=== PATIENT | female | born 1965 | race Caucasian/White ===

== ENCOUNTER 2017-01-02 02:07 | Emergency (ER) | payer OTHER ==
[~2017-01-02] VITALS: Ht 167.6 cm; Wt 97.3 kg
[~2017-01-02 02:07] MED LIST: ALPR-475 PO; ALPR1TAB2 PO; ESCI20TA10 PO; ESTR0.3T PO; ESTR1.25 PO; OXYC15TA75 PO; WARF1POW PO; WARF7.5T PO; WARF7.5T6 PO
[2017-01-02] MEDS ORDERED: ONDANSETRON 2MG/ML, 2ML IVPush ONE (03:00)
[2017-01-02] MEDS ORDERED: SODIUM CHLORIDE 0.9% 1,000ML IVBOLUS ONE (03:00)
[2017-01-02] MEDS ORDERED: MORPHINE SULFATE 4 MG/ML, 1ML ONE ×5 (03:15→14:16)
[2017-01-02] MEDS ORDERED: ONDANSETRON 2MG/ML, 2ML ONE (03:16)
[2017-01-02] MEDS: MORPHINE SULFATE 4 MG/ML, 1ML IVPush PRN ×4 (03:19→10:38)
[2017-01-02] MEDS ORDERED: PROM25SU34 RC (03:41)
[2017-01-02 03:42] LABS: ASPARTATE AMINO TRANSFERASE 24 U/L (15-37); BLOOD UREA NITROGEN 11 mg/dL (7-18)
[2017-01-02 03:51] LABS: IS PT STATUS REG ER OR PRE ER? YES
[2017-01-02] MEDS ORDERED: SODIUM CHLORIDE 0.9% 1,000 ML IV ONE (04:29)
[2017-01-02] MEDS ORDERED: ONDANSETRON 2MG/ML, 2ML IVPush PRN (04:30)
[2017-01-02] MEDS ORDERED: NS + 20MEQ KCL 1,000 ML IV SCH (04:47)
[2017-01-02] MEDS ORDERED: NS + 20MEQ KCL 1,000 ML IV ONE (04:54)
[2017-01-02] MEDS ORDERED: OXYcodone IR 5MG TABLET PO PRN (05:00)
[2017-01-02] MEDS ORDERED: ONDANSETRON 2MG/ML, 2ML IVP PRN (05:00)
[2017-01-02] MEDS ORDERED: LORazepam 2 MG/ML, 1ML IVPush PRN (05:00)
[2017-01-02] MEDS ORDERED: MORPHINE SULFATE 4 MG/ML, 1ML IVPush PRN ×2 (05:00→15:30)
[2017-01-02 06:19] LABS: IS PT STATUS REG ER OR PRE ER? YES
[2017-01-02] MEDS ORDERED: REGADENOSON 0.4 MG/5 ML SYRINGE ONE (08:15)
[2017-01-02] MEDS ORDERED: TEMPLATE NON-FORMULARY MED. (Escitalopram Oxalate** (Lexapro**) 20 MG) PO SCH (09:00)
[2017-01-02] MEDS ORDERED: WARFARIN 5 MG TABLET PO-COUM SCH (09:00)
[2017-01-02] MEDS ORDERED: FAMOTIDINE 20 MG/2 ML IV SCH (09:00)
[2017-01-02] MEDS ORDERED: ESTROGEN CONJUGATED 0.3 MG TABLET PO SCH (09:00)
[2017-01-02] MEDS ORDERED: FAMOTIDINE 20 MG/2 ML ONE (10:36)
[2017-01-02 10:55] LABS: IS PT STATUS REG ER OR PRE ER? YES
[2017-01-02] MEDS ORDERED: vitamin b-12 IM (11:19)
[2017-01-02 14:00] VITALS: BP 119/74
[2017-01-03] MEDS ORDERED: CITALOPRAM 20 MG TABLET PO SCH (09:00)
== END 2017-01-02 14:53 | disposition other institution (70) ==
LOC: ED 03:54 → EDIP 04:29 → UNDOADMIN 04:29 → ED 14:53
DX: R10.13 Epigastric pain (principal); I10 Essential (primary) hypertension; R07.89 Other chest pain
CPT/HCPCS: 36415; 74022; 78452; 80053; 83036; 83690; 84443; 84484; 85025; 85610; 93005; 93017; 96361; 96374; 96375; 96376; 99285; A9502; C9898; J2405; J2785; J3480; J7030; S0028

== ENCOUNTER 2017-02-27 00:50 | Emergency (ER) | payer OTHER ==
[~2017-02-27] VITALS: Ht 167.6 cm; Wt 90.0 kg
[~2017-02-27 00:50] MED LIST changes: +PROM25SU34 RC; +vitamin b-12 IM
[2017-02-27 02:00] LABS: HCG UR OBC PASS
[2017-02-27] MEDS ORDERED: ONDANSETRON 2MG/ML, 2ML IVPush ONE (02:00)
[2017-02-27 02:03] LABS: ASPARTATE AMINO TRANSFERASE 15 U/L (15-37); BLOOD UREA NITROGEN 11 mg/dL (7-18)
[2017-02-27] MEDS ORDERED: ONDANSETRON 2MG/ML, 2ML ONE ×2 (02:29→03:48)
[2017-02-27] MEDS ORDERED: MORPHINE SULFATE 4 MG/ML, 1ML ONE ×2 (02:29→03:48)
[2017-02-27] MEDS: MORPHINE SULFATE 4 MG/ML, 1ML IVPush PRN ×2 (02:39→03:51)
[2017-02-27] MEDS ORDERED: SODIUM CHLORIDE 0.9% 1,000ML IVBOLUS ONE (03:00)
[2017-02-27 03:30] VITALS: BP 145/80
== END 2017-02-27 04:38 | disposition home or self-care (01) ==
LOC: ED 02:21
DX: R10.9 Unspecified abdominal pain (principal); G89.29 Other chronic pain; R11.0 Nausea; I10 Essential (primary) hypertension; Z90.710 Acquired absence of both cervix and uterus; F12.10 Cannabis abuse, uncomplicated; Z87.891 Personal history of nicotine dependence; Z91.040 Latex allergy status; Z91.041 Radiographic dye allergy status
CPT/HCPCS: 36415; 74020; 80053; 81003; 81025; 83690; 85025; 85610; 93005; 96374; 96375; 99285; J2405

== ENCOUNTER 2017-04-02 23:05 | Emergency (ER) | payer OTHER ==
[~2017-04-02] VITALS: Ht 167.6 cm; Wt 92.7 kg
[2017-04-02 23:07] VITALS: BP 116/89
== END 2017-04-02 23:48 | disposition home or self-care (01) ==
LOC: ED 23:42
DX: R07.89 Other chest pain (principal); I10 Essential (primary) hypertension; Z86.711 Personal history of pulmonary embolism; Z90.710 Acquired absence of both cervix and uterus; Z79.01 Long term (current) use of anticoagulants; Z91.040 Latex allergy status; Z88.8 Allergy status to other drugs, medicaments and biological substances
CPT/HCPCS: 93005; 99283

== ENCOUNTER 2017-05-26 18:35 | Emergency (ER) | payer OTHER ==
[~2017-05-26] VITALS: Ht 167.6 cm; Wt 90.5 kg
[2017-05-26] MEDS ORDERED: ONDANSETRON 2MG/ML, 2ML IVPush ONE (19:00)
[2017-05-26] MEDS ORDERED: SODIUM CHLORIDE FLUSH 10ML SYR IVF ONE (19:00)
[2017-05-26] MEDS ORDERED: SODIUM CHLORIDE 0.9% 1,000ML IVBOLUS ONE (19:00)
[2017-05-26] MEDS ORDERED: ONDANSETRON 2MG/ML, 2ML ONE (19:18)
[2017-05-26] MEDS ORDERED: HYDROmorphone 1 MG/ML, 1ML IM ONE (19:30)
[2017-05-26] MEDS ORDERED: HYDROmorphone 1 MG/ML, 1ML ONE (19:32)
[2017-05-26 19:44] LABS: HEMATOCRIT 39.4 % (34.6-47.8); HEMOGLOBIN 13.1 g/dL (11.7-16.4); WHITE BLOOD COUNT 4.9 x10^3/uL (3.4-10)
[2017-05-26 19:56] LABS: ASPARTATE AMINO TRANSFERASE 11 U/L (15-37); BLOOD UREA NITROGEN 13 mg/dL (7-18)
[2017-05-26] MEDS ORDERED: HYDROmorphone 1 MG/ML, 1ML IV ONE (20:00)
[2017-05-26 21:27] VITALS: BP 152/77
== END 2017-05-26 21:29 | disposition home or self-care (01) ==
LOC: ED 21:25
DX: R10.11 Right upper quadrant pain (principal); I10 Essential (primary) hypertension; Z90.710 Acquired absence of both cervix and uterus
CPT/HCPCS: 36415; 76705; 80053; 83690; 85025; 85610; 96361; 96374; 96375; 99285; J1170; J2405; J7030

== ENCOUNTER 2017-10-01 22:31 | Inpatient (IN) | payer OTHER ==
[~2017-10-01] VITALS: Ht 167.6 cm; Wt 92.8 kg
[2017-10-01 23:42] LABS: MICROSCOPIC NOT IND
[2017-10-01 23:43] LABS: CULTURE INDICATED? NO
[2017-10-01 23:44] LABS: BASOPHILS # (AUTO) 0.03 x10^3/uL (0-0.1); BASOPHILS % (AUTO) 0 % (0-1); EOSINOPHILS # (AUTO) 0.06 x10^3/uL (0-0.4); EOSINOPHILS % (AUTO) 1 % (1-7); LYMPHOCYTES # (AUTO) 1.04 x10^3/uL (1-3.4); LYMPHOCYTES % (AUTO) 16 % (22-44); MD NO; MEAN CORPUSCULAR HEMOGLOBIN 28.5 pg (27.0-34.8); MEAN CORPUSCULAR HGB CONC 32.6 g/dL (32.4-35.8); MEAN CORPUSCULAR VOLUME 87.3 fL (80-100); MEAN PLATELET VOLUME 8.9 fL (7.4-10.4); MONOCYTES # (AUTO) 0.53 x10^3/uL (0.2-0.8); MONOCYTES % (AUTO) 8 % (2-9); NEUTROPHILS # (AUTO) 5.05 x10^3/uL (1.8-6.8); NEUTROPHILS % (AUTO) 75 % (42-75); PLATELET COUNT 272 x10^3/uL (130-400); RED BLOOD COUNT 4.33 x10^6/uL (3.82-5.3); RED CELL DISTRIBUTION WIDTH 18.4 % (9.6-15.2)
[2017-10-01 23:59] LABS: ALANINE AMINOTRANSFERASE 43 U/L (12-78); ALBUMIN 3.2 g/dL (3.4-5.0); ANION GAP 11 mmol/L (5-15); CALCIUM 8.7 mg/dL (8.5-10.1); CHLORIDE 111 mmol/L (98-107); CREATININE 0.93 mg/dL (0.55-1.02)
[2017-10-02 00:04] LABS: ALKALINE PHOSPHATASE 231 U/L (45-117); BILIRUBIN,TOTAL 0.2 mg/dL (0.2-1.0); TOTAL PROTEIN 7.3 g/dL (6.4-8.2)
[2017-10-02] MEDS ORDERED: HYDROmorphone 2 MG/ML, 1ML IM ONE (00:30)
[2017-10-02] MEDS ORDERED: HYDROmorphone 2 MG/ML, 1ML ONE (00:34)
[2017-10-02] MEDS ORDERED: OMNIPAQUE 350 MG/ML, 100ML BOTTLE ONE (01:48)
[2017-10-02] MEDS ORDERED: SODIUM CHLORIDE 0.9% 1,000 ML IV ONE (02:46)
[2017-10-02 02:48] LABS: INTERNATIONAL NORMALIZED RATIO 1.28 (0.93-1.1); PROTHROMBIN TIME 13.2 Seconds (9.6-11.5)
[2017-10-02] MEDS ORDERED: METRONIDAZOLE PMX 500MG/100ML 100 ML ONE (03:00)
[2017-10-02] MEDS ORDERED: MORPHINE SULFATE 4 MG/ML, 1ML IVPush PRN (03:00)
[2017-10-02] MEDS ORDERED: MORPHINE SULFATE 4 MG/ML, 1ML ONE (03:00)
[2017-10-02] MEDS ORDERED: CIPROFLOXACIN/PMX 400MG/200ML 200 ML IV ONE (03:00)
[2017-10-02] MEDS ORDERED: ONDANSETRON 2MG/ML, 2ML IVPush PRN ×2 (03:00→04:30)
[2017-10-02] MEDS ORDERED: METRONIDAZOLE PMX 500MG/100ML 100 ML IV ONE (03:00)
[2017-10-02] MEDS ORDERED: CIPROFLOXACIN/PMX 400MG/200ML 200 ML ONE (03:00)
[2017-10-02] MEDS ORDERED: PROMETHAZINE 25 MG SUPP PR PRN (04:00)
[2017-10-02] MEDS ORDERED: ENALAPRILAT 1.25 MG/ML, 2ML IVPush PRN (04:30)
[2017-10-02] MEDS ORDERED: TEMAZEPAM 15 MG CAPSULE PO PRN (04:30)
[2017-10-02] MEDS ORDERED: ONDANSETRON ODT 4 MG PO PRN (04:30)
[2017-10-02] MEDS ORDERED: HYDROcodone/APAP 5/325 TABLET PO PRN (04:30)
[2017-10-02] MEDS ORDERED: DOCUSATE 100 MG CAPSULE PO PRN (04:30)
[2017-10-02] MEDS ORDERED: LABETALOL 5MG/ML, 20ML IVPush PRN (04:30)
[2017-10-02] MEDS ORDERED: POLYETHYLENE GLYCOL 17 GM PACKET PO PRN (04:30)
[2017-10-02] MEDS ORDERED: OXYcodone IR 5MG TABLET ONE (04:48)
[2017-10-02] MEDS: OXYcodone IR 5MG TABLET PO PRN ×3 (04:52→21:39)
[2017-10-02 06:04] VITALS: BP 128/83
[2017-10-02 06:06] VITALS: BP 128/83
[2017-10-02 07:00] VITALS: BP 129/75
[2017-10-02] MEDS: ENOXAPARIN 100 MG/ML SQ SCH ×2 (07:56→17:54)
[2017-10-02] MEDS: CITALOPRAM 20 MG TABLET PO SCH ×2 (07:56→08:04)
[2017-10-02] MEDS: morphine SULFATE 10 MG/ML, 1ML IVPush PRN ×4 (08:11→18:02)
[2017-10-02] MEDS ORDERED: hydrALAzine 20 MG/ML, 1ML IV PRN (08:30)
[2017-10-02] MEDS ORDERED: WARFARIN SODIUM 5 MG PO SCH (09:00)
[2017-10-02] MEDS: CEFTRIAXONE 2 GM in DEXTROSE 5% 50 ML IV SCH (10:27)
[2017-10-02] MEDS: METRONIDAZOLE PMX 500MG/100ML 100 ML IV SCH ×2 (11:51→17:53)
[2017-10-02 13:15] VITALS: BP 113/73
[2017-10-02] MEDS ORDERED: CIPROFLOXACIN/PMX 400MG/200ML 200 ML IVPB SCH (15:00)
[2017-10-02] MEDS ORDERED: WARFARIN 7.5 MG TABLET PO-COUM SCH (18:00)
[2017-10-02 20:15] VITALS: BP 109/67
[2017-10-03] MEDS: METRONIDAZOLE PMX 500MG/100ML 100 ML IV SCH ×3 (03:01→18:18)
[2017-10-03 03:02] VITALS: BP 148/85
[2017-10-03] MEDS ORDERED: LORazepam 1MG TABLET PO ONE (03:30)
[2017-10-03 05:52] LABS: INTERNATIONAL NORMALIZED RATIO 1.64 (0.93-1.1); PROTHROMBIN TIME 16.9 Seconds (9.6-11.5)
[2017-10-03 05:57] LABS: CHLORIDE 110 mmol/L (98-107)
[2017-10-03 06:10] LABS: BASOPHILS # (AUTO) 0.02 x10^3/uL (0-0.1); BASOPHILS % (AUTO) 0 % (0-1); EOSINOPHILS # (AUTO) 0.03 x10^3/uL (0-0.4); EOSINOPHILS % (AUTO) 1 % (1-7); LYMPHOCYTES # (AUTO) 0.91 x10^3/uL (1-3.4); LYMPHOCYTES % (AUTO) 20 % (22-44); MD NO; MEAN CORPUSCULAR HEMOGLOBIN 28.8 pg (27.0-34.8); MEAN CORPUSCULAR VOLUME 87.4 fL (80-100); MEAN PLATELET VOLUME 8.9 fL (7.4-10.4); MONOCYTES # (AUTO) 0.52 x10^3/uL (0.2-0.8); MONOCYTES % (AUTO) 11 % (2-9); NEUTROPHILS # (AUTO) 3.13 x10^3/uL (1.8-6.8); NEUTROPHILS % (AUTO) 68 % (42-75); PLATELET COUNT 221 x10^3/uL (130-400); RED BLOOD COUNT 3.85 x10^6/uL (3.82-5.3); RED CELL DISTRIBUTION WIDTH 17.9 % (9.6-15.2)
[2017-10-03 06:12] LABS: ALANINE AMINOTRANSFERASE 32 U/L (12-78); ALBUMIN 2.9 g/dL (3.4-5.0); ALKALINE PHOSPHATASE 163 U/L (45-117); ANION GAP 7 mmol/L (5-15); BILIRUBIN,TOTAL 0.3 mg/dL (0.2-1.0); CALCIUM 8.3 mg/dL (8.5-10.1); TOTAL PROTEIN 6.6 g/dL (6.4-8.2)
[2017-10-03] MEDS: ENOXAPARIN 100 MG/ML SQ SCH ×2 (06:49→18:18)
[2017-10-03 08:40] VITALS: BP 140/75
[2017-10-03] MEDS: CEFTRIAXONE 2 GM in DEXTROSE 5% 50 ML IV SCH (09:36)
[2017-10-03] MEDS: CITALOPRAM 20 MG TABLET PO SCH (09:36)
[2017-10-03] MEDS: morphine SULFATE 10 MG/ML, 1ML IVPush PRN ×3 (11:17→21:05)
[2017-10-03 13:00] VITALS: BP 134/87
[2017-10-03] MEDS ORDERED: WARFARIN 3 MG TABLET PO-COUM SCH (18:00)
[2017-10-03 20:53] VITALS: BP 126/76
[2017-10-04 00:17] VITALS: BP 136/83
[2017-10-04] MEDS: morphine SULFATE 10 MG/ML, 1ML IVPush PRN ×4 (01:00→19:16)
[2017-10-04] MEDS: METRONIDAZOLE PMX 500MG/100ML 100 ML IV SCH ×3 (03:18→20:06)
[2017-10-04 05:31] LABS: BASOPHILS # (AUTO) 0.03 x10^3/uL (0-0.1); BASOPHILS % (AUTO) 1 % (0-1); EOSINOPHILS # (AUTO) 0.03 x10^3/uL (0-0.4); EOSINOPHILS % (AUTO) 1 % (1-7); LYMPHOCYTES # (AUTO) 1.19 x10^3/uL (1-3.4); LYMPHOCYTES % (AUTO) 22 % (22-44); MD NO; MEAN CORPUSCULAR HEMOGLOBIN 28.8 pg (27.0-34.8); MEAN CORPUSCULAR VOLUME 87.3 fL (80-100); MONOCYTES # (AUTO) 0.65 x10^3/uL (0.2-0.8); MONOCYTES % (AUTO) 12 % (2-9); NEUTROPHILS # (AUTO) 3.49 x10^3/uL (1.8-6.8); NEUTROPHILS % (AUTO) 65 % (42-75); PLATELET COUNT 223 x10^3/uL (130-400); RED BLOOD COUNT 3.83 x10^6/uL (3.82-5.3); RED CELL DISTRIBUTION WIDTH 18.1 % (9.6-15.2)
[2017-10-04 05:38] LABS: INTERNATIONAL NORMALIZED RATIO 3.24 (0.93-1.1); PROTHROMBIN TIME 32.9 Seconds (9.6-11.5)
[2017-10-04 05:40] LABS: CHLORIDE 110 mmol/L (98-107)
[2017-10-04] MEDS: ENOXAPARIN 100 MG/ML SQ SCH (05:51)
[2017-10-04 05:52] LABS: ALANINE AMINOTRANSFERASE 30 U/L (12-78); ALBUMIN 2.8 g/dL (3.4-5.0); ALKALINE PHOSPHATASE 159 U/L (45-117); ANION GAP 9 mmol/L (5-15); BILIRUBIN,TOTAL 0.2 mg/dL (0.2-1.0); CALCIUM 8.5 mg/dL (8.5-10.1); TOTAL PROTEIN 6.7 g/dL (6.4-8.2)
[2017-10-04 07:45] VITALS: BP 137/71
[2017-10-04] MEDS: CEFTRIAXONE 2 GM in DEXTROSE 5% 50 ML IV SCH (08:34)
[2017-10-04] MEDS: CITALOPRAM 20 MG TABLET PO SCH (08:38)
[2017-10-04] MEDS: ESTROGEN CONJUGATED 0.3 MG TABLET PO SCH (08:39)
[2017-10-04 09:26] LABS: INTERNATIONAL NORMALIZED RATIO 3.38 (0.93-1.1); PROTHROMBIN TIME 34.3 Seconds (9.6-11.5)
[2017-10-04 13:51] VITALS: BP 133/84
[2017-10-04] MEDS ORDERED: HOLD COUMADIN MC ONE (18:00)
[2017-10-04 20:11] VITALS: BP 130/85
[2017-10-04] MEDS: OXYcodone IR 5MG TABLET PO PRN (20:12)
[2017-10-05] MEDS: METRONIDAZOLE PMX 500MG/100ML 100 ML IV SCH ×2 (03:40→12:00)
[2017-10-05 03:43] VITALS: BP 131/81
[2017-10-05] MEDS: morphine SULFATE 10 MG/ML, 1ML IVPush PRN (05:22)
[2017-10-05 05:38] LABS: INTERNATIONAL NORMALIZED RATIO 3.43 (0.93-1.1); PROTHROMBIN TIME 34.8 Seconds (9.6-11.5)
[2017-10-05 07:35] VITALS: BP 143/80
[2017-10-05] MEDS: CEFTRIAXONE 2 GM in DEXTROSE 5% 50 ML IV SCH (07:56)
[2017-10-05] MEDS ORDERED: HOLD COUMADIN MC PRN (08:00)
[2017-10-05] MEDS: CITALOPRAM 20 MG TABLET PO SCH (08:01)
[2017-10-05] MEDS: ESTROGEN CONJUGATED 0.3 MG TABLET PO SCH (08:02)
[2017-10-05] MEDS: OXYcodone IR 5MG TABLET PO PRN (08:20)
[2017-10-05 09:53] LABS: INTERNATIONAL NORMALIZED RATIO 3.47 (0.93-1.1); PROTHROMBIN TIME 35.2 Seconds (9.6-11.5)
[2017-10-05] MEDS ORDERED: CEFD300C37 PO (11:12)
[2017-10-05] MEDS ORDERED: AZIT500T5 PO (11:12)
[2017-10-05] MEDS ORDERED: WARF2TAB PO (11:12)
[2017-10-05] MEDS ORDERED: METR500T PO (13:31)
== END 2017-10-05 13:40 | disposition home or self-care (01) | DRG 391 ==
LOC: ED 23:49 → EDIP 10-02 02:46 → 4NOR 10-02 05:40 → DCLOUNGE 10-05 13:17
PROVIDERS: ADMIT Internal Medicine; ATTEND Internal Medicine
DX: K57.92 Diverticulitis of intestine, part unspecified, without perforation or abscess without bleeding (principal); K55.059 Acute (reversible) ischemia of intestine, part and extent unspecified; D68.61 Antiphospholipid syndrome; F11.20 Opioid dependence, uncomplicated; I10 Essential (primary) hypertension; R51 Headache; K52.9 Noninfective gastroenteritis and colitis, unspecified; F32.9 Major depressive disorder, single episode, unspecified; D51.0 Vitamin B12 deficiency anemia due to intrinsic factor deficiency; Z88.9 Allergy status to unspecified drugs, medicaments and biological substances; Z90.710 Acquired absence of both cervix and uterus; Z86.711 Personal history of pulmonary embolism; Z88.8 Allergy status to other drugs, medicaments and biological substances; Z87.891 Personal history of nicotine dependence; Z79.01 Long term (current) use of anticoagulants
CPT/HCPCS: 36415; 74177; 76830; 80053; 81003; 83735; 84100; 84703; 85014; 85018; 85025; 85610; 93005; 96372; 96374; J0744; J1170; J1650; Q9967; J2270; J7030

== ENCOUNTER 2017-10-22 18:16 | Emergency (ER) | payer OTHER ==
[~2017-10-22] VITALS: Ht 167.6 cm; Wt 93.2 kg
[~2017-10-22 18:16] MED LIST changes: +AZIT500T5 PO; +CEFD300C37 PO; +METR500T PO; +WARF2TAB PO
[2017-10-22] MEDS ORDERED: HYDROmorphone 1 MG/ML, 1ML IM PRN (19:30)
[2017-10-22] MEDS ORDERED: HYDROmorphone 2 MG/ML, 1ML ONE (19:35)
[2017-10-22 20:54] VITALS: BP 145/78
== END 2017-10-22 20:56 | disposition home or self-care (01) ==
LOC: ED 20:50
DX: S93.491A Sprain of other ligament of right ankle, initial encounter (principal); I10 Essential (primary) hypertension; Z88.8 Allergy status to other drugs, medicaments and biological substances; Z91.040 Latex allergy status; W10.9XXA Fall (on) (from) unspecified stairs and steps, initial encounter; Y93.89 Activity, other specified; Y99.8 Other external cause status; Y92.89 Other specified places as the place of occurrence of the external cause
CPT/HCPCS: 73564; 73610; 96372; 99284; J1170

== ENCOUNTER 2018-07-07 22:46 | Emergency (ER) | payer OTHER ==
[~2018-07-07] VITALS: Ht 167.6 cm; Wt 88.0 kg
[~2018-07-07 22:46] MED LIST changes: +WARF7.5T46 PO; -WARF7.5T6 PO
[2018-07-07] MEDS ORDERED: OXYcodone/APAP 10/325MG TABLET PO ONE (23:30)
[2018-07-07 23:31] LABS: BASOPHILS # (AUTO) 0.03 x10^3/uL (0-0.1); BASOPHILS % (AUTO) 1 % (0-1); EOSINOPHILS # (AUTO) 0.07 x10^3/uL (0-0.4); EOSINOPHILS % (AUTO) 1 % (1-7); LYMPHOCYTES # (AUTO) 1.71 x10^3/uL (1-3.4); LYMPHOCYTES % (AUTO) 35 % (22-44); MD NO; MEAN CORPUSCULAR HEMOGLOBIN 28.4 pg (27.0-34.8); MEAN CORPUSCULAR HGB CONC 32.8 g/dL (32.4-35.8); MEAN CORPUSCULAR VOLUME 86.6 fL (80-100); MEAN PLATELET VOLUME 9.3 fL (7.4-10.4); MONOCYTES # (AUTO) 0.44 x10^3/uL (0.2-0.8); MONOCYTES % (AUTO) 9 % (2-9); NEUTROPHILS # (AUTO) 2.68 x10^3/uL (1.8-6.8); NEUTROPHILS % (AUTO) 54 % (42-75); PLATELET COUNT 207 x10^3/uL (130-400); RED BLOOD COUNT 4.29 x10^6/uL (3.82-5.3); RED CELL DISTRIBUTION WIDTH 17.1 % (9.6-15.2)
[2018-07-07] MEDS ORDERED: OXYcodone/APAP 10/325MG TABLET ONE (23:34)
[2018-07-07 23:40] LABS: INTERNATIONAL NORMALIZED RATIO 1.23 (0.93-1.1); PROTHROMBIN TIME 12.6 Seconds (9.6-11.5)
[2018-07-07 23:44] LABS: ALBUMIN 3.5 g/dL (3.4-5.0); ANION GAP 7 mmol/L (5-15); CALCIUM 8.7 mg/dL (8.5-10.1); CHLORIDE 110 mmol/L (98-107); CREATININE 0.86 mg/dL (0.55-1.02)
[2018-07-07 23:48] LABS: TROPONIN I < 0.015 ng/mL (0.000-0.045)
[2018-07-08 01:22] VITALS: BP 112/68
== END 2018-07-08 01:56 | disposition home or self-care (01) ==
LOC: ED 23:59
DX: G44.89 Other headache syndrome (principal); R07.89 Other chest pain; R79.9 Abnormal finding of blood chemistry, unspecified; I10 Essential (primary) hypertension; D68.61 Antiphospholipid syndrome; I26.99 Other pulmonary embolism without acute cor pulmonale
CPT/HCPCS: 36415; 70450; 71045; 80048; 82040; 84484; 85025; 85379; 85610; 93005; 99285

== ENCOUNTER 2018-08-10 17:02 | Emergency (ER) | payer OTHER ==
[~2018-08-10] VITALS: Ht 170.2 cm; Wt 84.9 kg
[2018-08-10 17:23] LABS: BASOPHILS # (AUTO) 0.05 x10^3/uL (0-0.1); BASOPHILS % (AUTO) 1 % (0-1); EOSINOPHILS # (AUTO) 0.08 x10^3/uL (0-0.4); EOSINOPHILS % (AUTO) 2 % (1-7); LYMPHOCYTES # (AUTO) 1.43 x10^3/uL (1-3.4); LYMPHOCYTES % (AUTO) 26 % (22-44); MD NO; MEAN CORPUSCULAR HEMOGLOBIN 28.2 pg (27.0-34.8); MEAN CORPUSCULAR HGB CONC 32.6 g/dL (32.4-35.8); MEAN CORPUSCULAR VOLUME 86.4 fL (80-100); MEAN PLATELET VOLUME 9.1 fL (7.4-10.4); MONOCYTES # (AUTO) 0.41 x10^3/uL (0.2-0.8); MONOCYTES % (AUTO) 7 % (2-9); NEUTROPHILS % (AUTO) 65 % (42-75); PLATELET COUNT 248 x10^3/uL (130-400); RED BLOOD COUNT 4.63 x10^6/uL (3.82-5.3); RED CELL DISTRIBUTION WIDTH 19.3 % (9.6-15.2)
[2018-08-10 17:37] LABS: ALBUMIN 3.5 g/dL (3.4-5.0); ANION GAP 8 mmol/L (5-15); CALCIUM 9.1 mg/dL (8.5-10.1); CHLORIDE 114 mmol/L (98-107)
[2018-08-10 17:48] LABS: ALANINE AMINOTRANSFERASE 25 U/L (12-78); ALKALINE PHOSPHATASE 107 U/L (45-117); BILIRUBIN,TOTAL 0.2 mg/dL (0.2-1.0); CREATININE 0.93 mg/dL (0.55-1.02); FREE T4 (FREE THYROXINE) 1.01 ng/dL (0.76-1.46); THYROID STIMULATING HORMONE 0.552 mIU/L (0.358-3.740); TOTAL PROTEIN 7.8 g/dL (6.4-8.2)
[2018-08-10 18:03] LABS: INTERNATIONAL NORMALIZED RATIO 8.24 (0.93-1.1); PROTHROMBIN TIME 80.5 Seconds (9.6-11.5)
[2018-08-10] MEDS ORDERED: SODIUM CHLORIDE FLUSH 10ML SYR IVF ONE (19:30)
[2018-08-10] MEDS ORDERED: OMNIPAQUE 350 MG/ML, 100ML BOTTLE ONE (19:40)
[2018-08-10 20:43] VITALS: BP 141/64
== END 2018-08-10 20:46 | disposition home or self-care (01) ==
LOC: ED 17:24
DX: H11.32 Conjunctival hemorrhage, left eye (principal); I10 Essential (primary) hypertension; D68.9 Coagulation defect, unspecified; Z91.040 Latex allergy status; Z88.5 Allergy status to narcotic agent
CPT/HCPCS: 36415; 70450; 74177; 80053; 84439; 84443; 85025; 85610; 85730; 99284; Q9967

== ENCOUNTER 2018-12-14 22:23 | Emergency (ER) | payer OTHER ==
[~2018-12-14] VITALS: Ht 167.6 cm; Wt 83.7 kg
[2018-12-14] MEDS ORDERED: OXYcodone IR 5MG TABLET PO ONE (23:00)
[2018-12-14 23:25] LABS: MEAN CORPUSCULAR HEMOGLOBIN 28.8 pg (27.0-34.8); MEAN CORPUSCULAR HGB CONC 32.5 g/dL (32.4-35.8); MEAN CORPUSCULAR VOLUME 88.7 fL (80-100); MEAN PLATELET VOLUME 9.3 fL (7.4-10.4); PLATELET COUNT 182 x10^3/uL (130-400); RED BLOOD COUNT 4.37 x10^6/uL (3.82-5.3); RED CELL DISTRIBUTION WIDTH 16.4 % (9.6-15.2)
[2018-12-14 23:26] LABS: MD YES
[2018-12-14 23:34] LABS: ALANINE AMINOTRANSFERASE 30 U/L (12-78); ALBUMIN 3.3 g/dL (3.4-5.0); ANION GAP 4 mmol/L (5-15); CALCIUM 8.4 mg/dL (8.5-10.1); CHLORIDE 112 mmol/L (98-107)
[2018-12-14 23:39] LABS: ALKALINE PHOSPHATASE 113 U/L (45-117); BILIRUBIN,TOTAL 0.2 mg/dL (0.2-1.0); TOTAL PROTEIN 6.8 g/dL (6.4-8.2); TROPONIN I < 0.015 ng/mL (0.000-0.045)
[2018-12-14 23:46] LABS: BASOS#(MANUAL) 0.03 x10^3/uL (0-0.1); BASOS% (MANUAL) 1 % (0-1); EOS#(MANUAL) 0.09 x10^3/uL (0.0-0.4); EOS% (MANUAL) 3 % (1-7); LYMPH#(MANUAL) 1.83 x10^3/uL (1-3.4); LYMPHS% (MANUAL) 59 % (22-44); MONOS#(MANUAL) 0.25 x10^3/uL (0.3-2.7); MONOS% (MANUAL) 8 % (2-9); SEGS% (MANUAL) 29 % (42-75)
[2018-12-14 23:47] LABS: ANISOCYTOSIS 1+
[2018-12-14 23:48] LABS: <PLATELET ESTIMATE> ADEQUATE; <PLT MORPHOLOGY> NORMAL PLT MORPH; OVALOCYTES 1+
[2018-12-14] MEDS ORDERED: OXYcodone IR 5MG TABLET ONE (23:56)
[2018-12-15 00:02] VITALS: BP 145/83
[2018-12-15 00:17] LABS: INTERNATIONAL NORMALIZED RATIO 1.26 (0.93-1.1); PROTHROMBIN TIME 13.1 Seconds (9.6-11.5)
[2018-12-15] MEDS ORDERED: ENOXAPARIN 80 MG/0.8 ML ONE (00:50)
[2018-12-15] MEDS ORDERED: ENOXAPARIN 80 MG/0.8 ML SQ ONE (01:00)
== END 2018-12-15 00:59 | disposition home or self-care (01) ==
LOC: ED 23:03
DX: R07.89 Other chest pain (principal); I10 Essential (primary) hypertension; Z87.891 Personal history of nicotine dependence; Z90.710 Acquired absence of both cervix and uterus
CPT/HCPCS: 36415; 71045; 80053; 83690; 84484; 85025; 85610; 93005; 96372; 99284; J1650

== ENCOUNTER 2019-10-29 21:08 | Emergency (ER) | payer OTHER ==
[~2019-10-29] VITALS: Ht 167.6 cm; Wt 82.2 kg
[~2019-10-29 21:08] MED LIST changes: -ALPR-475 PO; +ALPR0.5T7 PO; +AZIT500T10 PO; -AZIT500T5 PO
--- NOTE | 2019-10-29 21:29 | NUR ---
assessment made. chart up for MD to see. c/o chest pain and dizziness. anxious.
--- NOTE | 2019-10-29 21:32 | NUR ---
PA at bedside.
[2019-10-29] MEDS ORDERED: MORPHINE SULFATE 4 MG/ML, 1ML ONE (21:55)
[2019-10-29] MEDS ORDERED: ONDANSETRON 2MG/ML, 2ML ONE (21:55)
[2019-10-29] MEDS ORDERED: MORPHINE SULFATE 4 MG/ML, 1ML IVPush PRN (22:00)
[2019-10-29] MEDS ORDERED: ONDANSETRON 2MG/ML, 2ML IVPush ONE (22:00)
[2019-10-29] MEDS ORDERED: SODIUM CHLORIDE FLUSH 10ML SYR IVF ONE (22:00)
[2019-10-29 22:02] LABS: MEAN CORPUSCULAR HEMOGLOBIN 32.5 pg (27.0-34.8); MEAN CORPUSCULAR HGB CONC 33.1 g/dL (32.4-35.8); MEAN PLATELET VOLUME 8.9 fL (7.4-10.4); PLATELET COUNT 169 x10^3/uL (130-400); RED CELL DISTRIBUTION WIDTH 15.1 % (9.6-15.2)
[2019-10-29 22:11] LABS: ALANINE AMINOTRANSFERASE 33 U/L (12-78); ALBUMIN 3.3 g/dL (3.4-5.0); ANION GAP 4 mmol/L (5-15); CALCIUM 8.3 mg/dL (8.5-10.1); CHLORIDE 112 mmol/L (98-107); CREATININE 0.87 mg/dL (0.55-1.02)
[2019-10-29 22:15] LABS: ALKALINE PHOSPHATASE 116 U/L (45-117); BILIRUBIN,TOTAL 0.2 mg/dL (0.2-1.0); D-DIMER < 0.19 ug/mlFEU (0.00-0.52); INTERNATIONAL NORMALIZED RATIO 1.68 (0.93-1.1); PARTIAL THROMBOPLASTIN TIME 35 Seconds (25-31); PROTHROMBIN TIME 17.9 Seconds (9.6-11.5); TOTAL PROTEIN 6.4 g/dL (6.4-8.2); TROPONIN I < 0.015 ng/mL (0.000-0.045)
[2019-10-29 22:17] LABS: MD YES
[2019-10-29 22:21] LABS: ANISOCYTOSIS 1+; BASOS#(MANUAL) 0.04 x10^3/uL (0-0.1); BASOS% (MANUAL) 1 % (0-1); EOS#(MANUAL) 0.18 x10^3/uL (0.0-0.4); EOS% (MANUAL) 5 % (1-7); LYMPH#(MANUAL) 1.84 x10^3/uL (1-3.4); LYMPHS% (MANUAL) 51 % (22-44); MONOS#(MANUAL) 0.11 x10^3/uL (0.3-2.7); MONOS% (MANUAL) 3 % (2-9); REACTIVE LYMPHS # (MANUAL) 0.11 x10^3/uL (0-0); REACTIVE LYMPHS % (MANUAL) 3 % (0-0); SEG#(MANUAL) 1.33 x10^3/uL (1.8-6.8); SEGS% (MANUAL) 37 % (42-75)
[2019-10-29 22:22] LABS: <PLATELET ESTIMATE> ADEQUATE; <PLT MORPHOLOGY> NORMAL PLT MORPH; OVALOCYTES 1+
--- NOTE | 2019-10-29 22:38 | NUR ---
all labs resulted. chart up for MD to re-eval.
--- NOTE | 2019-10-29 22:54 | NUR ---
PA at bedside for re-evaluation.
--- NOTE | 2019-10-29 23:47 | NUR ---
patient discharged with instruction. verbalized understanding. patient vying her time in the room was told that we need a room.
[2019-10-29 23:48] VITALS: BP 125/71
== END 2019-10-29 23:50 | disposition home or self-care (01) ==
LOC: ED 23:15
DX: R07.89 Other chest pain (principal); Z79.01 Long term (current) use of anticoagulants; Z90.710 Acquired absence of both cervix and uterus
CPT/HCPCS: 36415; 71045; 80053; 84484; 85025; 85379; 85610; 85730; 93005; 96374; 96375; 99284; J2270; J2405

== ENCOUNTER 2020-08-06 03:21 | Emergency (ER) | payer OTHER ==
[~2020-08-06] VITALS: Ht 167.6 cm; Wt 90.7 kg
--- NOTE | 2020-08-06 03:45 | NUR ---
LATE ENTRY SUMMARY NOTE: PT HAD A PE IN 2010, SHE NOW TAKES COUMADIN FOR IT. PT HAS NOT HAD A PE SINCE. SHE DENIES ANY UNILATERAL LE SWELLING, REDNESS OR PAIN. PT STATES THE CHEST PAIN IN HER RIGHT SIDE WOKE HER FROM SLEEP AND IS A SHARP PAIN. PT DENIES SOB, TALKING IN FULL SENTENCES.
[2020-08-06] MEDS ORDERED: ONDANSETRON 2MG/ML, 2ML IVPush ONE (04:00)
[2020-08-06] MEDS ORDERED: HYDROmorphone 2 MG/ML, 1ML ONE ×2 (04:04→05:13)
[2020-08-06] MEDS ORDERED: ONDANSETRON 2MG/ML, 2ML ONE (04:04)
[2020-08-06] MEDS: HYDROmorphone 2 MG/ML, 1ML IVPush PRN ×2 (04:07→05:15)
[2020-08-06 04:17] LABS: BASOPHILS % (AUTO) 1 % (0-1); EOSINOPHILS % (AUTO) 3 % (1-7); LYMPHOCYTES % (AUTO) 50 % (22-44); MEAN CORPUSCULAR HEMOGLOBIN 32.6 pg (27.0-34.8); MEAN PLATELET VOLUME 8.7 fL (7.4-10.4); MONOCYTES % (AUTO) 7 % (2-9); NEUTROPHILS % (AUTO) 40 % (42-75); PLATELET COUNT 185 x10^3/uL (130-400); RED BLOOD COUNT 4.42 x10^6/uL (3.82-5.3); RED CELL DISTRIBUTION WIDTH 13.3 % (9.6-15.2)
[2020-08-06 04:21] LABS: MD NO
[2020-08-06 04:29] LABS: ALBUMIN 3.6 g/dL (3.4-5.0); ANION GAP 3 mmol/L (5-15); CALCIUM 8.7 mg/dL (8.5-10.1); CHLORIDE 113 mmol/L (98-107); CREATININE 0.87 mg/dL (0.55-1.02)
[2020-08-06 04:42] LABS: INTERNATIONAL NORMALIZED RATIO 5.16 (0.93-1.1); PROTHROMBIN TIME 53.8 Seconds (9.6-11.5)
--- NOTE | 2020-08-06 04:52 | NUR ---
PT TO IMAGING.
[2020-08-06] MEDS ORDERED: OMNIPAQUE 350 MG/ML, 100ML BOTTLE ONE (05:20)
[2020-08-06 06:37] VITALS: BP 145/83
== END 2020-08-06 06:39 | disposition home or self-care (01) ==
LOC: ED 04:37
DX: R07.89 Other chest pain (principal); R79.1 Abnormal coagulation profile; Z90.710 Acquired absence of both cervix and uterus; Z87.891 Personal history of nicotine dependence
CPT/HCPCS: 36415; 71275; 80048; 82040; 85025; 85610; 93005; 96374; 96375; 96376; 99285; J1170; J2405; Q9967

== ENCOUNTER 2020-12-24 19:31 | Emergency (ER) | payer OTHER ==
[~2020-12-24] VITALS: Ht 167.6 cm; Wt 91.6 kg
[2020-12-24] MEDS ORDERED: HYDROcodone/APAP 5/325 TABLET PO ONE (20:30)
[2020-12-24] MEDS ORDERED: HYDROcodone/APAP 5/325 TABLET ONE (20:46)
[2020-12-24 20:56] LABS: BASOPHILS % (AUTO) 1 % (0-1); EOSINOPHILS % (AUTO) 1 % (1-7); LYMPHOCYTES % (AUTO) 35 % (22-44); MD NO; MEAN CORPUSCULAR HEMOGLOBIN 32.4 pg (27.0-34.8); MEAN CORPUSCULAR HGB CONC 33.7 g/dL (32.4-35.8); MEAN PLATELET VOLUME 9.2 fL (7.4-10.4); MONOCYTES % (AUTO) 8 % (2-9); NEUTROPHILS % (AUTO) 55 % (42-75); PLATELET COUNT 184 x10^3/uL (130-400); RED BLOOD COUNT 4.46 x10^6/uL (3.82-5.3); RED CELL DISTRIBUTION WIDTH 13.8 % (9.6-15.2)
[2020-12-24 20:57] LABS: ALANINE AMINOTRANSFERASE 20 U/L (12-78); ALBUMIN 3.4 g/dL (3.4-5.0); ANION GAP 6 mmol/L (5-15); CALCIUM 9.2 mg/dL (8.5-10.1); CHLORIDE 110 mmol/L (98-107); CREATININE 0.96 mg/dL (0.55-1.02)
--- NOTE | 2020-12-24 20:57 | NUR ---
pedal pulses located with dopplar.
[2020-12-24 21:00] LABS: ALKALINE PHOSPHATASE 75 U/L (45-117); BILIRUBIN,TOTAL 0.4 mg/dL (0.2-1.0); TOTAL PROTEIN 7.1 g/dL (6.4-8.2)
[2020-12-24 21:05] LABS: INTERNATIONAL NORMALIZED RATIO 3.24 (0.93-1.1); PROTHROMBIN TIME 33.9 Seconds (9.6-11.5)
--- NOTE | 2020-12-24 21:50 | NUR ---
pt in bed with no signs or symptoms of acute dsitress noted respirations even and unlabored us ongoing at bedside
[2020-12-24 22:40] VITALS: BP 121/67
[2020-12-24] MEDS ORDERED: POTASSIUM CHLORIDE 20 MEQ TAB.ER.PRT ONE (22:47)
[2020-12-24] MEDS ORDERED: POTASSIUM CHLORIDE 20 MEQ TAB.ER.PRT PO ONE (23:00)
== END 2020-12-24 23:03 | disposition home or self-care (01) ==
LOC: ED 22:17
DX: M79.18 Myalgia, other site (principal); M79.661 Pain in right lower leg; E87.6 Hypokalemia; R00.0 Tachycardia, unspecified; Z79.01 Long term (current) use of anticoagulants
CPT/HCPCS: 36415; 80053; 85025; 85610; 93005; 99285

== ENCOUNTER 2021-03-02 22:42 | Emergency (ER) | payer OTHER ==
[~2021-03-02] VITALS: Ht 168.9 cm; Wt 91.4 kg
[2021-03-02] MEDS ORDERED: OMNIPAQUE 350 MG/ML, 100ML BOTTLE ONE (23:51)
[2021-03-03] MEDS ORDERED: ONDANSETRON 2MG/ML, 2ML IVPush ONE
[2021-03-03] MEDS ORDERED: SODIUM CHLORIDE FLUSH 10ML SYR IVF ONE
[2021-03-03] MEDS ORDERED: ONDANSETRON 2MG/ML, 2ML ONE (00:05)
[2021-03-03] MEDS ORDERED: MORPHINE SULFATE 4 MG/ML, 1ML ONE ×2 (00:05→02:16)
[2021-03-03] MEDS: MORPHINE SULFATE 4 MG/ML, 1ML IVPush PRN ×2 (00:09→02:40)
[2021-03-03 00:30] LABS: BASOPHILS % (AUTO) 1 % (0-1); EOSINOPHILS % (AUTO) 2 % (1-7); LYMPHOCYTES % (AUTO) 36 % (22-44); MEAN CORPUSCULAR HEMOGLOBIN 32.4 pg (27.0-34.8); MEAN CORPUSCULAR HGB CONC 34.3 g/dL (32.4-35.8); MEAN PLATELET VOLUME 9.1 fL (7.4-10.4); MONOCYTES % (AUTO) 9 % (2-9); NEUTROPHILS % (AUTO) 52 % (42-75); PLATELET COUNT 266 x10^3/uL (130-400); RED BLOOD COUNT 4.91 x10^6/uL (3.82-5.3); RED CELL DISTRIBUTION WIDTH 13.7 % (9.6-15.2)
[2021-03-03 00:40] LABS: ALANINE AMINOTRANSFERASE 26 U/L (12-78); ALBUMIN 3.5 g/dL (3.4-5.0); ANION GAP 6 mmol/L (5-15); CHLORIDE 108 mmol/L (98-107); CREATININE 0.97 mg/dL (0.55-1.02); INTERNATIONAL NORMALIZED RATIO 1.8 (0.93-1.1)
[2021-03-03 00:42] LABS: ALKALINE PHOSPHATASE 114 U/L (45-117); BILIRUBIN,TOTAL 0.3 mg/dL (0.2-1.0); TOTAL PROTEIN 7.9 g/dL (6.4-8.2)
[2021-03-03 02:50] LABS: MICROSCOPIC NOT IND
[2021-03-03 03:29] VITALS: BP 143/94
== END 2021-03-03 03:37 | disposition home or self-care (01) ==
LOC: ED 23:58
DX: R10.31 Right lower quadrant pain (principal); K59.00 Constipation, unspecified; G89.29 Other chronic pain; Z90.710 Acquired absence of both cervix and uterus
CPT/HCPCS: 36415; 74177; 80053; 81003; 85025; 85610; 85730; 96374; 96375; 96376; 99285; J2270; J2405; Q9967